=== PATIENT | female | born 1965 | race Caucasian/White ===

== ENCOUNTER 2020-08-14 11:50 | Day surgery (SDC) | payer OTHER | END 2020-08-14 14:15 | disposition home or self-care (01) | LOC: AMB-ENDOS 11:50 | PROVIDERS: ATTEND Surgery | DX: Z12.11 Encounter for screening for malignant neoplasm of colon (principal); C19 Malignant neoplasm of rectosigmoid junction; Z80.0 Family history of malignant neoplasm of digestive organs ==